=== PATIENT | male | born 1990 | race Caucasian/White ===

== ENCOUNTER 2018-09-15 09:45 | Emergency (ER) | payer MEDICAID ==
[~2018-09-15] VITALS: Ht 188 cm; Wt 74.8 kg
[2018-09-15 09:56] VITALS: BP_SYST 116
[2018-09-15] MEDS ORDERED: traMADol HCL HCL 50 MG TABLET (ULTRAM) PO ONE (11:45)
[2018-09-15] MEDS ORDERED: ONDANSETRON 4 MG ODT TAB PO ONE (11:45)
[2018-09-15] MEDS ORDERED: IBUPROFEN 800 MG TABLET PO ONE (11:45)
[2018-09-15 12:06] VITALS: BP_SYST 116
== END 2018-09-15 12:08 | disposition home or self-care (01) ==
LOC: SED 09:45
DX: M25.571 Pain in right ankle and joints of right foot (principal)
CPT/HCPCS: 73610; 73630; 99284; Q0162